=== PATIENT | female | born 1960 | race Caucasian/White ===

== ENCOUNTER 2025-06-08 12:21 | Emergency (ER) | payer MEDICARE, SELFPAY ==
--- NOTE | ~2025-06-08 | CT_ITS ---
CLINICAL HISTORY: headache CT head without contrast Comparison: None provided Findings: No intra-axial mass, midline shift, hydrocephalus, or acute hemorrhage. No significant atrophy-like change or white matter disease. The visualized paranasal sinuses and mastoid air cells are normal. The orbits are within normal limits. No skull fracture. IMPRESSION: 1. No acute intracranial findings. This document has been electronically signed by: Lucero Arevalo MD on 06/08/2025 14:24:56
[2025-06-08 12:59] VITALS: BP 169/81; PULSE 95; RESP 18; TEMP 37.1; O2SAT 97; BMI 24.6
--- NOTE | 2025-06-08 13:00 | ED.GENADULT ---
HPI - General Adult General Chief complaint: Headache Stated complaint: Headache Time Seen by Provider: 06/08/25 14:35 Source: patient and family () Mode of arrival: ambulatory Limitations: no limitations History of Present Illness ED Provider: Dr. Rafael Carrillo HPI narrative: 64-year-old female who presents emergency department for evaluation of left lower jaw dental pain, headache, chills, sweats, dizziness, weakness with symptoms starting after she had a dental procedure 2 weeks prior. Patient states that she had problems with her left lower wisdom tooth, she states that the tooth was drilled and a cap was placed on the tooth. She states that during the procedure, she was having significant nerve pain despite being anesthetized with Novocain. She is complaining of pain in her left lower jaw and headache that she describes as a pressure-like headache throughout the top of her head, which is constant but waxes and wanes in intensity from 5/10 to 10/10. She states she gets intermittent chills with sweats. She states she occasionally feels lightheaded and dizzy. She denied numbness or weakness of her extremities. The patient states she followed up a week later with her dentist and was placed on amoxicillin 500 mg 4 times a day for 10 days. Patient states that she has 1 more dose of amoxicillin and she is not feeling better. The states that 2 days prior, the patient had slurred speech and seemed to have difficulty moving her lips. They went to [facility] , waited 11 hours, were not seen by a provider and left without being seen or completing treatment. Related Data Previous Rx's ?Medication ?Instructions ?Recorded metoclopramide HCl 10 mg tablet 10 mg PO Q6H PRN nausea and 06/08/25 (Reglan) vomiting #14 tabs morphine 15 mg immediate release 15 mg PO Q6H PRN pain #14 tabs 06/08/25 tablet Allergies Allergy/AdvReac Type Severity Reaction Status Date / Time Sulfa (Sulfonamide Allergy Rash Verified 06/08/25 13:04 Antibiotics) Review of Systems Review of Systems: Yes all other systems are reviewed and are negative [facility] Past Medical History [facility] Narrative: Social history: She denies tobacco use. She rarely drinks alcohol. She denies drug use. Social History Social History Smoked in Last 30 Days: No Use of substances other than those prescribed or required for medical reasons: No Advance Directives: Yes Advance Directives Information Provided: Yes Advance Directives on File: No Physical Exam ED Vital Signs: Vital Signs - 24 hr 06/08/25 12:59 06/08/25 14:32 Temperature 98.7 F 98 F Pulse Rate 95 87 Respiratory Rate 18 19 Blood Pressure 169/81 H 155/81 H Pulse Oximetry 97 95 Oxygen Delivery Method Room Air Room Air BMI result Body Mass Index 24.6 Vital signs revealed an elevated blood pressure of 169/81 otherwise unremarkable Exam: General: Awake, alert in no distress Head: Normocephalic, atraumatic EENT: PERRL, sclera and conjunctiva are normal. Mouth: Patient small sore at the left oral commissure. Patient's gingiva appear to be normal. Patient does not have significant dental caries of the left lower dentition. Patient has no significant tenderness with palpation of her teeth or gingiva. Neck: Supple, no adenopathy Lung: breath sounds symmetric, no wheezing, no rales and no rhonchi Chest: symmetric movement, nontender Heart: regular rate and rhythm, normal S1, S2 no murmurs or rubs Abdomen: soft, non-tender, nondistended, normal bowel sounds Back: no vertebral tenderness, no CVAT Extremities: no deformities, moves all extremities symmetrically, no edema Neuro: Awake, alert, oriented, normal speech, cranial nerves 2-12 intact, moves all extremities symmetrically Psych: Pleasant, cooperative Course Course Course Narrative: Rapid medical examination performed in triage by Nuvia Zamarripa PA-C: Patient is a 64 year old assigned female at presenting to the emergency department with a headache and intermittent upper lip paralysis. Detailed physical exam and review of systems are deferred to the maintenance planning clerk. EKG, labs, imaging ordered. Patient placed back in the waiting room pending room availability and results. Medications Administered Discontinued Medications Generic Name Dose Route Start Last Admin Trade Name Freq PRN Reason Stop Dose Admin Diphenhydramine HCl 25 mg 06/08/25 15:11 06/08/25 15:32 Diphenhydramine Hcl 50 Mg/Ml Vial IVPUSH 06/08/25 15:12 25 mg ONCE ONE Administration Ketorolac Tromethamine 15 mg 06/08/25 15:11 06/08/25 15:33 Ketorolac Tromethamine 15 Mg/Ml Vial IVPUSH 06/08/25 15:12 15 mg ONCE STA Administration Metoclopramide HCl 10 mg 06/08/25 15:11 06/08/25 15:33 Metoclopramide Hcl 10 Mg/2 Ml Vial IVPUSH 06/08/25 15:12 10 mg ONCE STA Administration Morphine Sulfate 4 mg 06/08/25 15:11 06/08/25 15:33 Morphine Sulfate 4 Mg/Ml Cartridge IVPUSH 06/08/25 15:12 4 mg ONCE STA Administration Protocol Medical Decision Making Medical Decision Making [facility] Narrative: 64-year-old female who presents emergency department for evaluation of left lower jaw dental pain, headache, chills, sweats, dizziness, weakness with symptoms starting after she had a dental procedure 2 weeks prior. The patient followed up week later with her dentist and was placed on amoxicillin 500 mg 4 times a day for 10 days with no improvement of her symptoms. Patient did have an episode of difficulty speaking and difficulty moving her lips but this resolved. Vital signs revealed an elevated blood pressure otherwise unremarkable. Physical examination did not reveal any significant tenderness with palpation of her left lower teeth or gingiva. Neurologic exam was nonfocal. Differential diagnosis: ?Includes but is not limited to stroke, TIA, intracranial bleed, trigeminal neuralgia, giant cell arteritis, dental infection, bacteremia, subacute bacterial endocarditis, Lyme disease, anemia, electrolyte abnormalities Course: 15:31 My independent interpretation patient's laboratory evaluation is as follows: CBC was normal. PT INR was normal. BUN elevated 20 with a normal creatinine 0.83. ALT elevated 37. Troponin below detectable limits. ESR normal 6.0. CRP normal 0.21. Patient's laboratory evaluation was unremarkable, given the normal inflammatory markers I doubt that she has giant cell arteritis . The patient has been having chills with sweats since her dental procedure and she may be bacteremic , therefore I ordered blood cultures x2. At this time, I would not start her on antibiotics unless her blood cultures come back positive. CT scan of the brain revealed no acute process to explain the patient's symptoms. I suspect that the patient's symptoms are related to her dental pain which is causing her headache. The patient states that she has been taking Tylenol and ibuprofen with some relief for discomfort however her pain never drops below 5/10. Currently in the emergency department she told me that her pain was 5/10 therefore I ordered Toradol 15 mg IV, morphine 4 mg IV, Reglan 10 mg IV and Benadryl IV. 16:22 Patient's headache is completely resolved after the above treatment. Patient was discharged home with prescriptions for Reglan and morphine. She was also advised to take Tylenol and ibuprofen as needed for pain. She was given printed and verbal instructions and discharged home. Differential Diagnosis Differential Diagnoses: The differential diagnosis associated with the presentation includes (See above) Admission/Observation Consideration of admission/observation: Escalation of care including admission/observation considered Lab Data MDM Lab Attestation statement: I reviewed the patient's lab results. 06/08/25 13:23 06/08/25 13:23 Labs: Lab Results 06/08/25 Range/Units 13:23 WBC 6.3 (4.8-10.8) X10*3/uL RBC 4.34 (4.20-5.50) X10*6/uL Hgb 13.5 (12.0-16.0) g/dl Hct 41.6 (37.0-47.0) % MCV 95.9 (80.0-98.0) fL MCH 31.1 (27.0-33.0) pg MCHC 32.5 (31.0-35.0) g/dl RDW 12.8 (11.0-16.0) % Plt Count 295 (160-400) X10*3/uL MPV 8.9 L (9.4-12.3) fL Immature Gran % (Auto) 0.3 (0.0-0.4) % Neut % (Auto) 59.9 (45-73) % Lymph % (Auto) 25.1 (20-40) % Eaton % (Auto) 8.7 (2-11) % Eos % (Auto) 4.9 H (0-4) % Baso % (Auto) 1.1 (0-2) % Lymph # (Auto) 1.6 (1.2-4.9) X10*3/uL Eaton # (Auto) 0.6 (0.1-1.2) X10*3/uL Eos # (Auto) 0.3 (0.0-0.4) X10*3/uL Baso # (Auto) 0.1 (0.0-0.2) X10*3/uL Abs Immat Gran (auto) 0.02 (0.00-0.03) X10*3/uL Absolute Neuts (auto) 3.8 (2.0-8.3) x10*3/uL Absolute Nucleated RBC 0.000 (0.0-0.012) X10*3/uL Nucleated RBC % (auto) 0.0 (0.0-0.2) /100WBC ESR 6 (0-20) MM/HR PT 12.5 (11.2-13.5) SEC INR 1.0 (0.9-1.1) Sodium 140 (135-145) mmol/L Potassium 4.4 (3.3-5.1) mmol/L Chloride 104 (96-108) mmol/L Carbon Dioxide 26 (22-29) mmol/L Anion Gap 14 (12-20) BUN 20 H (9-16) mg/dL Creatinine 0.83 (0.5-1.4) mg/dL Estim Creat Clear Calc 59.1 Estimated GFR > 60 Random Glucose 95 (60-115) mg/dL Calcium 9.3 (8.4-10.2) mg/dL Magnesium 2.1 (1.6-2.6) mg/dL Total Bilirubin 0.4 (0.0-1.0) mg/dL AST 24 (5-31) U/L ALT 37 H (0-31) U/L Alkaline Phosphatase 71 (39-117) U/L Troponin I High Sens < 2.7 (<3.5-17.0) ng/L C-Reactive Protein 0.21 (< or = 0.50) mg/dL Total Protein 6.8 (6.5-8.0) g/dL Albumin 4.4 (3.5-5.0) g/dL Hold Red Top See Note Influenza Type A (PCR) NEGATIVE (Negative) Influenza Type B (PCR) NEGATIVE (Negative) RSV RNA Qual (PCR) NEGATIVE (Negative) SARS-CoV-2 RNA (RT-PCR) NEGATIVE (Negative) Independent Interpretation I performed an independent interpretation of an: EKG Interpretation: My independent interpretation patient's 12 EKG done on 06/08/2025 at 13:29 hours is as follows: Normal sinus rhythm with a rate of 89, normal NC interval, QRS duration QTC interval, no ST segment elevation, no ST segment depression, inverted T-waves in 2 and AVF, no PACs, no PVCs. This has a normal EKG. Radiology Impression Discussion of test interpretation with radiology: I have reviewed the radiologist's reading. Radiologist Impression: CT head without contrast Comparison: None provided Findings: No intra-axial mass, midline shift, hydrocephalus, or acute hemorrhage. No significant atrophy-like change or white matter disease. The visualized paranasal sinuses and mastoid air cells are normal. The orbits are within normal limits. No skull fracture. IMPRESSION: 1. No acute intracranial findings. This document has been electronically signed by: Lucero Arevalo MD on 06/08/2025 14:24:56 Independent Historian Clinical information obtained from an independent historian. History obtained from or confirmed by: Spouse Prescription Management I considered prescription management with: Pain Medication (Morphine) and Other (Prescribed Antiemetic/migraine medication: Reglan) Discharge Plan Discharge Clinical Impression: Headache, Pain, dental Patient Disposition: Home, Self-Care Instructions: Acute Headache (ED) Additional Instructions: The CT scan of your head was normal which is reassuring. Your blood work did not reveal any significant abnormalities which is reassuring. You had blood cultures, these usually turned positive in 1-2 days but sometimes can be positive 1 week later. You also had a Lyme test , which will not come back today. At this time I think that your symptoms are related to your dental pain and the dental pain is causing your headachel. Prior to your dental surgery, your dentist most likely will not want you to take ibuprofen or Reglan, but you can take these medications after your surgery. Therefore for today and for tomorrow, you can take extra-strength Tylenol 500 mg pills, 2 pills every 6 hours as needed for pain not relieved by Tylenol you can take morphine 15 mg pills, 1 pill every 6 hours. After your dental surgery, I want you to take the following medications for severe headaches every 6 hours as needed for pain. Reglan (metoclopramide) in 10 mg, 1 pill Benadry (diphenhydramine) 25 mg, 2 pills Excedrin migraine (acetaminophen, aspirin, caffeine), 2 pills. After you take these medications, lie down in a dark quiet room and try to fall asleep. ?These medications will make you sleepy, do not drive or work after taking these medications. Please return to the emergency department if your symptoms get worse or if you develop any symptoms that are concerning to you. Prescriptions: New morphine 15 mg tablet 15 mg PO Q6H PRN (Reason: pain) Qty: 14 0RF Rx Instructions: Patient may request partial fill; Partial Fill upon patient request. metoclopramide HCl [Reglan] 10 mg tablet 10 mg PO Q6H PRN (Reason: nausea and vomiting) Qty: 14 0RF Print Language: Kosovan
--- NOTE | 2025-06-08 13:02 | ECG_ITS ---
Test Reason : WEAKNESS Blood Pressure : */* mmHG Vent. Rate : 89 BPM Atrial Rate : 89 BPM P-R Int : 118 ms QRS Dur : 72 ms QT Int : 314 ms P-R-T Axes : 27 -1 -15 degrees QTcB Int : 382 ms Normal sinus rhythm Normal ECG No previous ECGs available Referred By: Nuvia Zamarripa Electronically Signed By: Richard Esquivel
--- OUTSIDE RECORDS SUMMARY | 2025-06-08 13:27 | XMS_ITS | Patient Health Record ---
Author Organization [facility] Address [address] [place] [address] Care Team Providers Care Hide Worker Name Role Phone Dimitry Cortez MD Primary Care Provider Juan Erwin Unavailable [phone] Allergies Allergen (clinical drug ingredient) Drug/Non Drug Allergy documented on EMR Reaction Allergy Type Onset Date Status sulfa rash Drug Allergy Active bee sting Unknown Drug Allergy Active Reason For Referral No Information Plan Of Treatment Pending Test Test Name Order Date X ray : Foot, left 2V 04/21/2014 X ray : Foot, right 2V 04/21/2014 [id number] Destruction, -04/21/2014 [id number] Destruction, 07-3005/21/2014 Insurance Providers Payer Name Payer Address Payer Phone Subscriber Number Group Number Insured Name Patient Relationship to Insured Coverage Start Date Coverage End Date [facility] [address] [place] [address] [phone] [id number] Olga Roberto Self - patient is the insured Medical (General) History Medical History History ICD Code Chicken pox Surgical History Surgery Date(Month/Year) hysterectomy 03/2012
[2025-06-08 13:29] LABS: MANUAL DIFF FLAG NO
[2025-06-08 13:32] LABS: Hematocrit 41.6 % (37.0-47.0); Hemoglobin 13.5 g/dl (12.0-16.0); Imm Gran Abs Auto 0.02 X10*3/uL (0.00-0.03); Imm Gran Pct Auto 0.3 % (0.0-0.4); Lymphocytes Absolute Auto 1.6 X10*3/uL (1.2-4.9); Mean Corpuscular HGB Conc 32.5 g/dl (31.0-35.0); Mean Corpuscular Hemoglobin 31.1 pg (27.0-33.0); Mean Corpuscular Volume 95.9 fL (80.0-98.0); NRBC Abs Auto 0.000 X10*3/uL (0.0-0.012); NRBC Pct Auto 0.0 /100WBC (0.0-0.2); Platelet Count 295 X10*3/uL (160-400); Red Blood Count 4.34 X10*6/uL (4.20-5.50); White Blood Count 6.3 X10*3/uL (4.8-10.8)
[2025-06-08 13:37] LABS: INTERNATIONAL NORM RATIO 1.0 (0.9-1.1); Prothrombin Time 12.5 SEC (11.2-13.5)
[2025-06-08 13:48] LABS: Alanine Aminotransferase 37 U/L (0-31); Albumin Level 4.4 g/dL (3.5-5.0); Alkaline Phosphatase 71 U/L (39-117); Anion Gap 14 (12-20); Aspartate Amino Transferase 24 U/L (5-31); Blood Urea Nitrogen 20 mg/dL (9-16); Calcium 9.3 mg/dL (8.4-10.2); Carbon Dioxide 26 mmol/L (22-29); Chloride 104 mmol/L (96-108); Creatinine Clr Calc Pharmacy 59.1; Estimated Glomerular Filt Rate > 60; Magnesium 2.1 mg/dL (1.6-2.6); Potassium 4.4 mmol/L (3.3-5.1); Sodium 140 mmol/L (135-145); Total Protein 6.8 g/dL (6.5-8.0)
[2025-06-08 13:58] LABS: Troponin-I High Sensitivity < 2.7 ng/L (<3.5-17.0)
[2025-06-08 14:13] LABS: Resp Syncy Virus RNA Qual PCR NEGATIVE (Negative); SARS COV2 PCR INHOUSE NEGATIVE (Negative)
[2025-06-08 14:16] LABS: Erythrocyte Sedimentation Rate 6 MM/HR (0-20)
[2025-06-08 14:32] VITALS: BP 155/81; PULSE 87; RESP 19; TEMP 36.6; O2SAT 95
[2025-06-11 06:28] LABS: A. Phagocytphilium DNA,RT-PCR NOT DETECTED (NOT DETECTED); Babesia Microti DNA, RT-PCR NOT DETECTED (NOT DETECTED); Borrelia Miyamotoi,DNA RT-PCR NOT DETECTED (NOT DETECTED); E.Chaffeensis DNA RT-PCR NOT DETECTED (NOT DETECTED); Lyme(Borrelia ssp)DNA RT-PCR NOT DETECTED (NOT DETECTED)
[2025-06-11 13:53] LABS: Lyme Abs Screen <0.90 index
== END 2025-06-08 17:01 | disposition home or self-care (01) ==
PROVIDERS: Physician Assistant Medical; Emergency Provider Emergency Medicine Emergency Medical Services
DX: R51.9 Headache, unspecified (principal); K08.89 Other specified disorders of teeth and supporting structures; R68.84 Jaw pain; R42 Dizziness and giddiness; Z03.818 Encounter for observation for suspected exposure to other biological agents ruled out; Z79.899 Other long term (current) drug therapy; Z51.81 Encounter for therapeutic drug level monitoring
CPT/HCPCS: 36415; 70450; 80053; 83735; 84484; 85025; 85610; 85652; 86140; 86617; 86618; 87040; 87468; 87469; 87478; 87484; 87637; 87798; 93005; 96374; 96375; 99284; 99285; J1200; J1885; J2270; J2765

== ENCOUNTER → 2025-06-08 13:01 | Outpatient (BNV) | payer MEDICARE, SELFPAY | PROVIDERS: Emergency Provider Emergency Medicine Emergency Medical Services; Visit Provider Nuclear Medicine | DX: R51.9 Headache, unspecified (principal) | CPT/HCPCS: 70450 ==

== ENCOUNTER → 2025-06-08 13:02 | Outpatient (BNV) | payer MEDICARE, SELFPAY | PROVIDERS: Emergency Provider Emergency Medicine Emergency Medical Services; Visit Provider Internal Medicine Cardiovascular Disease | DX: R53.1 Weakness (principal) | CPT/HCPCS: 93010 ==